=== PATIENT | female | born 1935 | race Two or more races ===

== ENCOUNTER 2019-12-13 10:19 | Outpatient (CLI) | payer MEDICARE, OTHER | END 2019-12-13 23:59 | disposition home or self-care (01) | LOC: NM 10:19 | PROVIDERS: ATTEND Specialist | DX: S91.001A Unspecified open wound, right ankle, initial encounter (principal); X58.XXXA Exposure to other specified factors, initial encounter; Y93.89 Activity, other specified; Y92.89 Other specified places as the place of occurrence of the external cause; Y99.8 Other external cause status | CPT/HCPCS: 78315; A9503 ==